=== PATIENT | male | born 1940 | race Caucasian/White ===

== ENCOUNTER 2017-09-01 21:13 | Inpatient (IN) | payer MEDICARE ==
[2017-09-01 21:13] VITALS: BMI 25.8
[2017-09-01] MEDS ORDERED: Sodium Chloride 0.9% 500 ML IV ONE (21:56)
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
[2017-09-01] MEDS ORDERED: Sodium Chloride 0.9% 1,000 ML ONE (22:11)
[2017-09-01] MEDS ORDERED: Morphine 4 MG/ML VIAL ONE (22:11)
[2017-09-01 22:40] LABS: BASO % 0.4 % (0.0-2.0); EOS # 0.2 K/uL (0.0-0.7); EOS % 2.1 % (0.0-4.0); HEMOGLOBIN 16.6 g/dL (12.0-18.0); LYMPH % 11.2 % (20.0-40.0); MEAN CELL VOLUME 94.2 fL (80.0-94.0); MONO # 0.6 K/uL (0.0-0.8); MONO % 6.9 % (0.0-10.0); NEUT # 7.3 K/uL (1.8-7.0); NEUT % 79.4 % (50.0-75.0); RBC 5.17 Mil/uL (4.40-5.90); RED CELL DISTRIBUTION WIDTH 13.6 % (11.5-14.5); WHITE BLOOD COUNT 9.2 K/uL (4.8-10.8)
[2017-09-01 22:52] LABS: CALCIUM 10.2 mg/dl (8.6-10.4); GFR AFRICAN-AMERICAN > 60; GFR NON-AFRICAN AMERICAN > 60; LIPASE 77 U/L (23-300)
[2017-09-01 23:06] LABS: ALB/GLOB RATIO 1.4 (1.0-2.1); ALBUMIN 4.7 g/dL (3.5-5.0); ALT/SGPT 24 U/L (21-72); AST/SGOT 44 U/L (17-59); BLOOD UREA NITROGEN 22 mg/dL (9-20)
[2017-09-01] MEDS ORDERED: Iohexol 300 100 ML IJ ONE (23:15)
--- NOTE | 2017-09-02 00:06 | CT ---
EXAM: CT Abdomen and Pelvis With Intravenous Contrast CLINICAL HISTORY: 76 years old, male; Pain; Abdominal pain; Prior surgery; Surgery type: Colon resection; Patient HX: 02-06-16; Additional info: Abd pain TECHNIQUE: Axial computed tomography images of the abdomen and pelvis with intravenous contrast. All CT scans at this facility use one or more dose reduction techniques, viz.: automated exposure control; ma/kV adjustment per patient size (including targeted exams where dose is matched to indication; i.e. head); or iterative reconstruction technique. Coronal and sagittal reformatted images were created and reviewed. CONTRAST: 100 mL of [id number] administered intravenously. COMPARISON: CT - ABD PELVIS IV CONTRAST ONLY 2016-02-06 10:00 FINDINGS: Lower thorax: 6 millimeters subpleural nodule right lung axial image #2. Subsegmental atelectasis at lung bases. Small hiatal hernia. ABDOMEN: Liver: Multiple tiny hepatic calcifications. Gallbladder and bile ducts: Gallbladder is unremarkable. No calcified stones. No ductal dilation. Pancreas: Pancreas is unremarkable. No ductal dilation. Spleen: Spleen is unremarkable. Adrenals: Adrenal glands are unremarkable. Kidneys and ureters: Unremarkable. No solid mass. No hydronephrosis. Stomach and bowel: Stomach is fluid-filled. Diffusely fluid-filled small bowel loops some of which are prominent. Enteritis versus partial small bowel obstruction. No findings to suggest acute appendicitis. No significant mesenteric adenopathy. Right-sided colonic diverticulosis. Left-sided colonic diverticulosis. Previous surgery. Appendix: See above. PELVIS: Bladder: Unremarkable. No mass. Reproductive: Markedly enlarged prostate gland measuring 6.6 CM transverse by 5.3 CM AP. ABDOMEN and PELVIS: Intraperitoneal space: No free fluid in the pelvis. No free air. Bones/joints: Diffuse spinal degenerative changes. No acute fracture. No dislocation. Soft tissues: Unremarkable. Vasculature: Aorta is atherosclerotic. No abdominal aortic aneurysm. Lymph nodes: No retroperitoneal adenopathy. IMPRESSION: 1. Rightist versus partial small bowel obstruction. 2. 6 mm subpleural nodule in the right lung. Followup CT in 6-12 months. 3. Remainder of findings as above.
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
[2017-09-02] MEDS ORDERED: Sodium Chloride 0.9% 1,000 ML IV SCH (03:30)
[2017-09-02] MEDS: Sodium Chloride 0.9% 1,000 ML IV SCH ×3 (04:02→21:30)
[2017-09-02] MEDS: Piperacill/Tazo 3.375gm in Dex 3.375 GM/50 ML BAG IVPB SCH ×3 (04:11→19:30)
[2017-09-02] MEDS ORDERED: Morphine 4 MG/ML VIAL IVP PRN (04:14)
[2017-09-02 07:28] LABS: BASO % 0.3 % (0.0-2.0); EOS # 0.2 K/uL (0.0-0.7); EOS % 2.7 % (0.0-4.0); HEMOGLOBIN 15.5 g/dL (12.0-18.0); LYMPH # 1.1 K/uL (1.0-4.3); LYMPH % 13.4 % (20.0-40.0); MEAN CELL VOLUME 93.1 fL (80.0-94.0); MEAN CORPUSCULAR HEMOGLOBIN 32.2 pg (27.0-31.0); MEAN CORPUSCULAR HGB CONC 34.6 g/dL (33.0-37.0); MONO # 0.8 K/uL (0.0-0.8); MONO % 9.4 % (0.0-10.0); NEUT % 74.2 % (50.0-75.0); RBC 4.81 Mil/uL (4.40-5.90); RED CELL DISTRIBUTION WIDTH 13.3 % (11.5-14.5); WHITE BLOOD COUNT 8.1 K/uL (4.8-10.8)
[2017-09-02 07:48] LABS: ALB/GLOB RATIO 1.5 (1.0-2.1); ALBUMIN 3.9 g/dL (3.5-5.0); ALT/SGPT 30 U/L (21-72); AST/SGOT 23 U/L (17-59); BLOOD UREA NITROGEN 16 mg/dL (9-20); CALCIUM 9.4 mg/dl (8.6-10.4); GFR AFRICAN-AMERICAN > 60; GFR NON-AFRICAN AMERICAN > 60
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
[2017-09-02 17:40] VITALS: RESP 20
[2017-09-03] MEDS: Piperacill/Tazo 3.375gm in Dex 3.375 GM/50 ML BAG IVPB SCH ×3 (03:31→19:30)
--- NOTE | 2017-09-03 08:40 | CP.PCM.PN ---
Subjective - Date & Time of Evaluation Date of Evaluation: 09/03/17 Time of Evaluation: 07:00 - Subjective Subjective: General Surgery Dr. Saunders Pt S&E @bedside. NAEO. Pt has no complaints. reports decreased bloating and distention. denies F/C, N/V, D/C. NPO (+)Flatus (-)BM NGT 400cc x24hrs bilious. Objective - Vital Signs/Intake and Output Vital Signs (last 24 hours): Temp Pulse Resp BP Pulse Ox 98.1 F 77 20 141/78 97 09/03/17 07:31 09/03/17 07:31 09/03/17 07:31 09/03/17 07:31 09/03/17 07:31 Intake and Output: 09/03/17 09/03/17 06:59 18:59 Intake Total 750 800 Output Total 950 500 Balance -200 300 - Medications Medications: Current Medications Acetaminophen (Tylenol 325mg Tab) 650 mg PO Q6 PRN PRN Reason: Fever >100.4 F Atenolol (Tenormin) 100 mg PO DAILY [facility] Last Admin: 09/02/17 09:32 Dose: 100 mg Chlorthalidone (Hygroton) 25 mg PO DAILY [facility] Last Admin: 09/02/17 09:32 Dose: 25 mg Hydralazine HCl (Apresoline) 10 mg IVP Q6H [facility] Last Admin: 09/03/17 06:23 Dose: Not Given Sodium Chloride (Sodium Chloride 0.9%) 1,000 mls @ 100 mls/hr IV .Q10H [facility] Last Admin: 09/02/17 21:30 Dose: 100 mls/hr Piperacillin Sod/Tazobactam Sod (Zosyn 3.375 Gm Iv Premix) 3.375 gm in 50 mls @ 100 mls/hr IVPB Q8H [facility] Last Admin: 09/03/17 03:31 Dose: 100 mls/hr Ketorolac Tromethamine (Toradol) 30 mg IV Q6 PRN PRN Reason: Pain, moderate (4-7) Morphine Sulfate (Morphine) 2 mg IVP Q4 PRN PRN Reason: Pain, severe (8-10) Ondansetron HCl (Zofran Inj) 4 mg IVP Q6 PRN PRN Reason: Nausea/Vomiting Pneumococcal Polyvalent Vaccine (Pneumovax 23 Vaccine) 0.5 ml IM .ONCE ONE Stop: 09/05/17 10:01 - Labs Labs: 09/02/17 07:09 09/02/17 07:09 - Constitutional Appears: Non-toxic, No Acute Distress - Head Exam Head Exam: NORMAL INSPECTION - Eye Exam Eye Exam: Normal appearance - ENT Exam ENT Exam: Mucous Membranes Moist Additional comments: NGT to wall suction - Respiratory Exam Respiratory Exam: NORMAL BREATHING PATTERN. absent: Accessory Muscle Use, Respiratory Distress - GI/Abdominal Exam GI & Abdominal Exam: Soft. absent: Distended, Guarding, Tenderness, Rebound - Extremities Exam Extremities Exam: Normal Inspection - Neurological Exam Neurological Exam: Alert, Awake, Oriented x3 - Psychiatric Exam Psychiatric exam: Normal Affect, Normal Mood - Skin Skin Exam: Dry, Intact, Normal Color, Warm Assessment and Plan - Assessment and Plan (Free Text) Assessment: 76 y/o M w/ abd pain 2/2 pSBO - clamp NGT - start CLD - monitor bowel fxn - serial abd exams - cont pain management - encourage OOB to chair/Amb Pt discussed w/ Dr. Nicky Riley DO PGY2
[2017-09-03 08:50] LABS: BASO # 0.1 K/uL (0.0-0.2); BASO % 0.6 % (0.0-2.0); EOS # 0.2 K/uL (0.0-0.7); EOS % 2.2 % (0.0-4.0); LYMPH # 1.2 K/uL (1.0-4.3); LYMPH % 11.8 % (20.0-40.0); MEAN CELL VOLUME 93.4 fL (80.0-94.0); MEAN CORPUSCULAR HEMOGLOBIN 32.5 pg (27.0-31.0); MEAN CORPUSCULAR HGB CONC 34.8 g/dL (33.0-37.0); MEAN PLATELET VOLUME 9.3 fL (7.2-11.7); MONO # 0.9 K/uL (0.0-0.8); MONO % 8.8 % (0.0-10.0); NEUT # 7.6 K/uL (1.8-7.0); NEUT % 76.6 % (50.0-75.0); RBC 4.92 Mil/uL (4.40-5.90); RED CELL DISTRIBUTION WIDTH 13.6 % (11.5-14.5); WHITE BLOOD COUNT 9.9 K/uL (4.8-10.8)
[2017-09-03 08:57] LABS: INR 1.2; PROTHROMBIN TIME 13.5 SECONDS (9.7-12.2)
[2017-09-03 09:08] LABS: ALB/GLOB RATIO 1.4 (1.0-2.1); ALT/SGPT 26 U/L (21-72); AST/SGOT 24 U/L (17-59); BLOOD UREA NITROGEN 17 mg/dL (9-20); GFR AFRICAN-AMERICAN > 60; GFR NON-AFRICAN AMERICAN > 60
[2017-09-03] MEDS: Sodium Chloride 0.9% 1,000 ML IV SCH (09:23)
[2017-09-03] MEDS ORDERED: DiphenhydrAMINE 50 mg/ml Inj IVP PRN (20:23)
[2017-09-04] MEDS: Piperacill/Tazo 3.375gm in Dex 3.375 GM/50 ML BAG IVPB SCH ×2 (03:56→12:55)
[2017-09-04 08:12] LABS: ALB/GLOB RATIO 1.3 (1.0-2.1); ALBUMIN 3.9 g/dL (3.5-5.0); ALT/SGPT 28 U/L (21-72); AST/SGOT 27 U/L (17-59); BLOOD UREA NITROGEN 22 mg/dL (9-20); CALCIUM 8.8 mg/dl (8.6-10.4); GFR AFRICAN-AMERICAN > 60; GFR NON-AFRICAN AMERICAN > 60
[2017-09-04 08:15] LABS: BASO # 0.1 K/uL (0.0-0.2); BASO % 0.7 % (0.0-2.0); EOS # 0.3 K/uL (0.0-0.7); EOS % 4.1 % (0.0-4.0); HEMOGLOBIN 15.7 g/dL (12.0-18.0); LYMPH # 1.5 K/uL (1.0-4.3); LYMPH % 18.5 % (20.0-40.0); MEAN CELL VOLUME 93.6 fL (80.0-94.0); MEAN CORPUSCULAR HEMOGLOBIN 32.9 pg (27.0-31.0); MEAN CORPUSCULAR HGB CONC 35.2 g/dL (33.0-37.0); MEAN PLATELET VOLUME 9.1 fL (7.2-11.7); MONO # 0.8 K/uL (0.0-0.8); MONO % 9.5 % (0.0-10.0); NEUT # 5.6 K/uL (1.8-7.0); NEUT % 67.2 % (50.0-75.0); NRBC % 0.1 % (0.0-2.0); RBC 4.76 Mil/uL (4.40-5.90); RED CELL DISTRIBUTION WIDTH 13.5 % (11.5-14.5); WHITE BLOOD COUNT 8.3 K/uL (4.8-10.8)
--- NOTE | 2017-09-04 09:46 | CP.PCM.PN ---
Subjective - Date & Time of Evaluation Date of Evaluation: 09/04/17 Time of Evaluation: 06:45 Objective - Vital Signs/Intake and Output Vital Signs (last 24 hours): Temp Pulse Resp BP Pulse Ox 98.4 F 69 20 115/70 94 L 09/04/17 00:00 09/04/17 00:00 09/04/17 00:00 09/04/17 00:00 09/04/17 00:00 Intake and Output: 09/04/17 09/04/17 06:59 18:59 Intake Total 350 Balance 350 - Medications Medications: Current Medications Acetaminophen (Tylenol 325mg Tab) 650 mg PO Q6 PRN PRN Reason: Fever >100.4 F Atenolol (Tenormin) 100 mg PO DAILY [facility] Last Admin: 09/03/17 09:24 Dose: 100 mg Chlorthalidone (Hygroton) 25 mg PO DAILY [facility] Last Admin: 09/03/17 09:24 Dose: 25 mg Diphenhydramine HCl (Benadryl) 25 mg IVP HS PRN PRN Reason: Insomnia Last Admin: 09/03/17 21:48 Dose: 25 mg Hydralazine HCl (Apresoline) 25 mg PO QID [facility] Last Admin: 09/03/17 19:00 Dose: 25 mg Sodium Chloride (Sodium Chloride 0.9%) 1,000 mls @ 100 mls/hr IV .Q10H [facility] Last Admin: 09/03/17 09:23 Dose: 100 mls/hr Piperacillin Sod/Tazobactam Sod (Zosyn 3.375 Gm Iv Premix) 3.375 gm in 50 mls @ 100 mls/hr IVPB Q8H [facility] Last Admin: 09/04/17 03:56 Dose: 100 mls/hr Morphine Sulfate (Morphine) 2 mg IVP Q4 PRN PRN Reason: Pain, severe (8-10) Ondansetron HCl (Zofran Inj) 4 mg IVP Q6 PRN PRN Reason: Nausea/Vomiting Pneumococcal Polyvalent Vaccine (Pneumovax 23 Vaccine) 0.5 ml IM .ONCE ONE Stop: 09/05/17 10:01 - Labs Labs: 09/04/17 07:52 09/04/17 07:52 PT 13.5 SECONDS (9.7-12.2) H 09/03/17 08:34 INR 1.2 09/03/17 08:34 APTT 30 SECONDS (21-34) 09/03/17 08:34
[2017-09-04 17:26] VITALS: BP 128/72; PULSE 65; TEMP 98.1; O2SAT 97
[2017-09-04] MEDS ORDERED: Pneumococcal 23-Valent Vaccine IM ONE (17:30)
--- NOTE | 2017-09-04 18:09 | CP.PCM.DIS ---
Provider - Provider Date of Admission: 09/02/17 00:45 Attending physician: Kunal Saunders Jr, MD Time Spent in preparation of Discharge (in minutes): 45 Hospital Course - Lab Results Lab Results: Most Recent Lab Values WBC 8.3 K/uL (4.8-10.8) 09/04/17 07:52 RBC 4.76 Mil/uL (4.40-5.90) 09/04/17 07:52 Hgb 15.7 g/dL (12.0-18.0) 09/04/17 07:52 Hct 44.5 % (35.0-51.0) 09/04/17 07:52 MCV 93.6 fL (80.0-94.0) 09/04/17 07:52 MCH 32.9 pg (27.0-31.0) H 09/04/17 07:52 MCHC 35.2 g/dL (33.0-37.0) 09/04/17 07:52 RDW 13.5 % (11.5-14.5) 09/04/17 07:52 Plt Count 141 K/uL (130-400) 09/04/17 07:52 MPV 9.1 fL (7.2-11.7) 09/04/17 07:52 Neut % (Auto) 67.2 % (50.0-75.0) 09/04/17 07:52 Lymph % (Auto) 18.5 % (20.0-40.0) L 09/04/17 07:52 [place] % (Auto) 9.5 % (0.0-10.0) 09/04/17 07:52 Eos % (Auto) 4.1 % (0.0-4.0) H 09/04/17 07:52 Baso % (Auto) 0.7 % (0.0-2.0) 09/04/17 07:52 Neut # (Auto) 5.6 K/uL (1.8-7.0) 09/04/17 07:52 Lymph # (Auto) 1.5 K/uL (1.0-4.3) 09/04/17 07:52 [place] # (Auto) 0.8 K/uL (0.0-0.8) 09/04/17 07:52 Eos # (Auto) 0.3 K/uL (0.0-0.7) 09/04/17 07:52 Baso # (Auto) 0.1 K/uL (0.0-0.2) 09/04/17 07:52 PT 13.5 SECONDS (9.7-12.2) H 09/03/17 08:34 INR 1.2 09/03/17 08:34 APTT 30 SECONDS (21-34) 09/03/17 08:34 Sodium 138 mmol/L (132-148) 09/04/17 07:52 Potassium 3.6 mmol/L (3.6-5.2) 09/04/17 07:52 Chloride 96 mmol/L (98-107) L 09/04/17 07:52 Carbon Dioxide 31 mmol/L (22-30) H 09/04/17 07:52 Anion Gap 14 (10-20) 09/04/17 07:52 BUN 22 mg/dL (9-20) H 09/04/17 07:52 Creatinine 1.1 mg/dL (0.8-1.5) 09/04/17 07:52 Est GFR ( Amer) > 60 09/04/17 07:52 Est GFR (Non-Af Amer) > 60 09/04/17 07:52 Random Glucose 93 mg/dL (75-110) 09/04/17 07:52 Calcium 8.8 mg/dl (8.6-10.4) 09/04/17 07:52 Total Bilirubin 2.6 mg/dL (0.2-1.3) H 09/04/17 07:52 AST 27 U/L (17-59) 09/04/17 07:52 ALT 28 U/L (21-72) 09/04/17 07:52 Alkaline Phosphatase 63 U/L (38-126) 09/04/17 07:52 Total Protein 6.8 g/dL (6.3-8.3) 09/04/17 07:52 Albumin 3.9 g/dL (3.5-5.0) 09/04/17 07:52 Globulin 2.9 gm/dL (2.2-3.9) 09/04/17 07:52 Albumin/Globulin Ratio 1.3 (1.0-2.1) 02/19/18 07:52 Lipase 77 U/L (23-300) 09/01/17 22:29 - Hospital Course Hospital Course: 76M w/ pmhx of HTN, GERD, Abd surgeries, presents to [facility] [place] ED w/ sharp and crampy LUQ radiating to mid-epigastric abdominal pain that started [place] afternoon. Patient had similar pain about two weeks ago, however previous episode was significantly worse. Patient has associated nausea, with one episode of non-bloody, non-bilious vomiting. Admits to passing flatus less than 12hrs ago, and multiple normal BM. Denies recent foreign travel or recent sick contacts. During hospital stay, NGT was placed, and conservative management to SBO was taken. patient was monitored and regained bowel function within 24 hrs. Patient's diet was advanced slowly to see if pt could tolerated. Regular diet was tolerated w/ proper bowel function. Patient was then discharged in stable condition. Discharge Exam - Head Exam Head Exam: NORMAL INSPECTION - Eye Exam Eye Exam: EOMI. absent: Scleral icterus - ENT Exam ENT Exam: Mucous Membranes Moist - Respiratory Exam Respiratory Exam: NORMAL BREATHING PATTERN. absent: Accessory Muscle Use, Respiratory Distress - Cardiovascular Exam Cardiovascular Exam: +S1, +S2. absent: Bradycardia, Tachycardia - GI/Abdominal Exam GI & Abdominal Exam: Normal Bowel Sounds, Soft. absent: Distended, Firm, Guarding, Hernia, Rigid, Tenderness - Extremities Exam Extremities exam: normal inspection - Back Exam Back exam: absent: CVA tenderness (L), CVA tenderness (R) - Neurological Exam Neurological exam: Alert, Oriented x3 - Psychiatric Exam Psychiatric exam: Normal Affect - Skin Skin Exam: Intact, Warm Discharge Plan - Follow Up Plan Condition: FAIR Disposition: HOME/ ROUTINE Instructions: Small Bowel Obstruction (DC) Additional Instructions: Can have regular heart healthy food. If pain like this occurs again, attempt to have nothing by mouth except clear liquids. If develop a fever greater than 100.4 take tylenol. if fever persists go to the ER. Can take miralax BID to help continue w/ frequency of BM Can follow up in office in 1-2 weeks w/ PMD and Dr. Saunders to monitor progress and recovery. Referrals: Kunal Saunders Jr., MD [Staff Provider] -
[2017-09-05] MEDS ORDERED: Pneumococcal 23-Valent Vaccine IM ONE (10:00)
== END 2017-09-04 18:41 | disposition home or self-care (01) | DRG 390 ==
LOC: C.ER 21:13 → C.9E 09-02 00:45 → C.3T 09-02 01:43
PROVIDERS: ADMIT Surgery Vascular Surgery; ATTEND Surgery Vascular Surgery
DX: K56.600 Partial intestinal obstruction, unspecified as to cause (principal); I10 Essential (primary) hypertension; K21.9 Gastro-esophageal reflux disease without esophagitis; E78.00 Pure hypercholesterolemia, unspecified